=== PATIENT | female | born 1995 | race Caucasian/White ===

== ENCOUNTER 2022-03-16 11:55 | Outpatient (CLI) | payer OTHER ==
--- NOTE | 2022-03-16 17:10 | XRAY Report ---
PROCEDURE: Ankle 3 View LT INDICATIONS: ANKLE JOINT PAIN, LEFT TECHNIQUE: 3 views of the ankle were acquired. COMPARISON: None FINDINGS: Bones: No fractures or dislocations. Ankle mortise is normally aligned. No suspicious bony lesions . Soft tissues: No tibiotalar joint effusion. Achilles tendon appears normal. Minor lateral soft tis gabby swelling. IMPRESSION: 1. No fractures. 2. Mild lateral soft tissue swelling. Reviewed by: Donna Sullivan MD on 03/16/2022 5:08 PM PST Approved by: Donna Sullivan MD on 03/16/2022 5:08 PM PST Station ID: [id number]
== END 2022-03-16 11:56 | disposition home or self-care (01) ==
LOC: DI 11:55
PROVIDERS: ATTEND Registered Nurse
DX: M25.572 Pain in left ankle and joints of left foot (principal); M79.89 Other specified soft tissue disorders